=== PATIENT | female | born 1975 | race Caucasian/White ===

== ENCOUNTER 2025-03-12 23:28 | Emergency (ER) | payer OTHER ==
[~2025-03-12] VITALS: Ht 154.9 cm; Wt 74.0 kg
[2025-03-12 23:35] VITALS: TEMP 97.3
[2025-03-13] MEDS: ACETAMINOPHEN 500 MG TABLET PO ONE (00:26)
[2025-03-13] MEDS: IBUPROFEN 400 MG TABLET PO ONE (00:26)
[2025-03-13] MEDS: DOXYCYCLINE HYCLATE 100 MG TABLET PO ONE (00:26)
[2025-03-13] MEDS: LIDOCAINE 5% TRANSDERMAL PATCH TD ONE (01:18)
[2025-03-13] MEDS ORDERED: DOXY-354 PO (01:27)
[2025-03-13] MEDS ORDERED: ACYC-138 PO (01:27)
[2025-03-13 01:30] VITALS: BP 121/70; PULSE 80; RESP 17; O2SAT 98
[2025-03-13] MEDS ORDERED: LIDO-57 TP (02:10)
[2025-03-13] MEDS: ACYCLOVIR 200 MG CAPSULE PO ONE (02:13)
== END 2025-03-13 02:17 | disposition home or self-care (01) ==
LOC: EMS 23:31
DX: L03.114 Cellulitis of left upper limb (principal); B02.8 Zoster with other complications
CPT/HCPCS: 99284; Z7502; Z7610